=== PATIENT | male | born 1945 | race Asian ===

== ENCOUNTER → 2016-09-30 | Outpatient (CLI) | payer BC, MEDICARE ==
[~2016-09-30] MED LIST: ADVAIR HFA1 AER IH; AMOXICILLIN875 MG PO; ASPIRIN 32325 MG/TAB PO; ASPIRIN 81M81 MG/TA2 PO; ASPIRIN E.C. 8181 MG PO; ATENOLOL100 MG PO; B-121000 MCG PO; CLARITIN 1010 MG/TAB PO; COZAAR100 MG PO; CRESTOR 10MG10 MG PO; CRESTOR20 MG PO; EFFIENT10 MG PO; FOLIC ACID800 MCG PO; HCTZ PO; HYZAAR 25 MG-101 TAB PO; IMDUR 30MG30 MG/TAB PO; IMDUR 60MG60 MG/TAB PO; IMDUR30 MG PO; LIPITOR 40MG TA40 MG PO; LIPITOR80 MG PO; METOPROLOL SR100 MG PO; MULTIPLE VITAMI1 CAP PO; NITROSTAT0.4 MG/TAB SL; PLAVIX 75MG TAB75 MG PO; PRILOSEC 20MG20 MG PO; RT ADVAIR 228 DISKUS IH; SINGULAIR10 MG PO; TENORMIN 5050 MG/TAB PO; TRILIPIX 135MG PO; ULTRAM 50MG TAB50 MG PO; VITAMIN D 1001000 IU PO; ZYRTEC 10MG10 MG PO
== END ==
LOC: COL.RAD 07:12
DX: I71.2 Thoracic aortic aneurysm, without rupture (principal); I25.10 Atherosclerotic heart disease of native coronary artery without angina pectoris; J43.8 Other emphysema
CPT/HCPCS: Q9967

== ENCOUNTER → 2020-01-24 | Outpatient (CLI) | payer BC, MEDICARE | LOC: COL.RAD 08:00 | DX: H90.41 Sensorineural hearing loss, unilateral, right ear, with unrestricted hearing on the contralateral side (principal) | CPT/HCPCS: A9585 ==